=== PATIENT | male | born 1960 | race Caucasian/White ===

== ENCOUNTER 2022-12-14 09:38 | Emergency (ER) | payer BC ==
[~2022-12-14] VITALS: Ht 188 cm; Wt 78.0 kg
[2022-12-14 10:22] LABS: BASOPHILS ABSOLUTE AUTO 0.02 K/mm3 (0.00-0.23); BASOPHILS PERCENT AUTO 1 % (0-2); EOSINOPHILS ABSOLUTE AUTO 0.21 K/mm3 (0.00-0.68); EOSINOPHILS PERCENT AUTO 6 % (0-6); Hematocrit 42.4 % (37.0-53.0); Hemoglobin 14.3 g/dL (13.5-17.5); IMMATURE GRAN ABSOLUTE AUTO 0.01 K/mm3 (0.00-0.10); IMMATURE GRAN PERCENT AUTO 0 % (0-1); LYMPHOCYTES PERCENT AUTO 26 % (21-46); MONOCYTES ABSOLUTE AUTO 0.38 K/mm3 (0.16-1.47); MONOCYTES PERCENT AUTO 11 % (4-13); Mean Corpuscular HGB 29.5 pg (26.0-34.0); Mean Corpuscular HGB Conc 33.7 g/dL (31.5-36.5); Mean Corpuscular Volume 87 fL (80-100); Mean Platelet Volume 10.7 fL (9.1-12.4); NEUTROPHILS PERCENT AUTO 56 % (41-73); Platelet Count 211 K/mm3 (150-400); RDW Coefficient Variation 13.9 % (11.7-14.2); RDW Standard Deviation 44.6 fL (35.1-46.3); Red Blood Cell Count 4.85 M/mm3 (4.30-5.90); White Blood Cell Count 3.42 K/mm3 (4.00-11.30)
[2022-12-14] MEDS ORDERED: Simvastatin20 MG PO (10:23)
[2022-12-14] MEDS ORDERED: LOSA50 PO (10:23)
[2022-12-14 10:56] LABS: Albumin, Blood 4.2 g/dL (3.4-5.0); Albumin/Globulin Ratio 1.1 (0.8-1.8); Bilirubin, Total 0.4 mg/dL (0.1-1.0); Calcium, Blood 8.7 mg/dL (8.5-10.1); Creatinine, Blood 0.71 mg/dL (0.60-1.20); Globulin, Blood 3.7 g/dL (2.2-4.0); Total Protein, Blood 7.9 g/dL (6.4-8.2)
[2022-12-14 11:59] VITALS: BP 111/66
== END 2022-12-14 12:00 | disposition home or self-care (01) ==
LOC: ER 09:38
PROVIDERS: Emergency Medicine
DX: R00.2 Palpitations (principal); R42 Dizziness and giddiness; Z88.5 Allergy status to narcotic agent; I10 Essential (primary) hypertension; E78.5 Hyperlipidemia, unspecified; Z79.899 Other long term (current) drug therapy
CPT/HCPCS: 71046; 80053; 84484; 85025; 93005; 93010; 99284-25

== ENCOUNTER 2023-07-16 06:38 | Day surgery (SDC) | payer BC ==
[~2023-07-16] VITALS: Ht 185.4 cm; Wt 75.7 kg
[~2023-07-16 06:38] MED LIST: LOSA50 PO; Simvastatin20 MG PO
[2023-07-16] MEDS ORDERED: SILD50TA (06:50)
[2023-07-16] MEDS ORDERED: FISH OIL 1,0001 EA10 (06:50)
[2023-07-16] MEDS ORDERED: LORA10ER (06:50)
[2023-07-16] MEDS ORDERED: propofoL 50 ML IV ONE ×2 (07:28→08:33)
[2023-07-16] MEDS ORDERED: Lactated Ringer's 1,000 ML IV ONE ×2 (07:29→07:49)
[2023-07-16 09:07] VITALS: BP 110/73
== END 2023-07-16 09:00 | disposition home or self-care (01) ==
LOC: ORSCSDS 06:38
PROVIDERS: Surgery
PROC: 0DBM8ZX Excision of Descending Colon, Via Natural or Artificial Opening Endoscopic, Diagnostic (ICD-10-PCS; principal; 2023-07-16 08:00)
DX: Z12.11 Encounter for screening for malignant neoplasm of colon (principal); K63.5 Polyp of colon; K52.9 Noninfective gastroenteritis and colitis, unspecified; I47.10 Supraventricular tachycardia, unspecified; Z79.899 Other long term (current) drug therapy
CPT/HCPCS: J2704; J7120